=== PATIENT | male | born 1965 | race Caucasian/White ===

== ENCOUNTER 2018-02-09 16:26 | Emergency (ER) | payer OTHER ==
[2018-02-09 16:29] VITALS: BP 133/86; TEMP 97.1; BMI 25.9
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
== END 2018-02-09 17:53 | disposition home or self-care (01) ==
LOC: ED 16:26
DX: M54.2 Cervicalgia (principal); R51 Headache; M54.6 Pain in thoracic spine; V43.52XA Car driver injured in collision with other type car in traffic accident, initial encounter
CPT/HCPCS: 99283